=== PATIENT | male | born 1955 | race African-American/Black ===

== ENCOUNTER 2016-10-02 08:25 | Inpatient (IN) | payer MEDICARE, MEDICAID ==
[~2016-10-02] VITALS: Ht 167.6 cm; Wt 61.4 kg
[~2016-10-02 08:25] MED LIST: CALCITONIN,SALMON, 3.7 ML NASAL SPRAY ONENSTRL SCH
[2016-10-02] MEDS ORDERED: ASPI-1159 PO (08:40)
[2016-10-02] MEDS ORDERED: TAMS-11 PO (08:40)
[2016-10-02] MEDS ORDERED: METF500T PO (08:40)
[2016-10-02] MEDS ORDERED: LABE100T PO (08:40)
[2016-10-02] MEDS ORDERED: NIFE30TA83 PO (08:40)
[2016-10-02] MEDS ORDERED: GABA-531 PO (08:40)
[2016-10-02] MEDS ORDERED: FURO40TA5 PO (08:40)
[2016-10-02] MEDS ORDERED: METF10002 PO (08:40)
[2016-10-02 09:08] LABS: BG BASE EXCESS -0.3 mmol/L (-2.0-2.0); BG CARBOXYHEMOGLOBIN 1.1 % (0.5-1.5); BG DEOXYHEMOGLOBIN 3.3 % (0.0-5.0); BG FRACTION INSPIRED OXYGEN 21; BG HCO3 ACT 23.7 mmol/L (22.0-26.0); BG METHEMOGLOBIN 0.8 % (0.0-1.5); BG OXYGEN SATURATION 96.6 % (92.0-98.5); BG OXYHEMOGLOBIN 94.8 % (94.0-97.0); BG PCO2 35.9 mmHg (35.0-45.0); BG PH 7.438 (7.350-7.450); BG SAMPLE SITE RIGHT BRACHIAL; BG TOTAL HEMOGLOBIN 7.8 g/dL (12.0-18.0); BG VENT MODE ROOM AIR
[2016-10-02 09:32] LABS: HEMATOCRIT. 22.8 % (42.0-52.0); MEAN CORPUSCULAR HEMOGLOBIN 18.3 pg (28.0-32.0); MEAN CORPUSCULAR VOLUME 61.1 fL (80.0-94.0); MEAN PLATELET VOLUME 6.9 fl (7.4-10.4); PLATELET 456 x1000/uL (130-400); RED BLOOD CELL COUNT 3.73 mill/uL (4.7-6.1); RED CELL DISTRIBUTION WIDTH 19.7 % (11.6-14.6)
[2016-10-02 09:37] LABS: HEMOGLOBIN. 6.8 g/dL (14.0-18.0)
[2016-10-02 09:43] LABS: INR 1.4; PARTIAL THROMBOPLASTIN TIME 32.2 sec (23.4-31.0); PROTHROMBIN TIME 14.7 sec (9.4-11.6)
[2016-10-02 09:50] LABS: CARBON DIOXIDE 24 mEq/L (21-32); CHLORIDE 105 mEq/L (98-107); CREATINE KINASE 12 IU/L (39-308); CREATINE KINASE MB FRACTION < 0.5 ng/mL (0.5-3.6); ETHANOL BLOOD < 10 mg/dL; TROPONIN I < 0.02 ng/mL (0.00-0.04)
[2016-10-02] MEDS ORDERED: SODIUM CHLORIDE 0.9% 1,000 ML IV ONE (09:52)
[2016-10-02 10:00] LABS: AMMONIA 18 uMol/L (<32)
[2016-10-02] MEDS ORDERED: FUROSEMIDE 20MG/2ML VIAL IVP ONE (10:00)
[2016-10-02 10:04] LABS: TOTAL IRON BINDING CAPACITY 197 ug/dL (250-450)
[2016-10-02 10:26] LABS: PLATELET ESTIMATE INCREASED
[2016-10-02] MEDS ORDERED: HYDROCODONE/ACETAMINOPHEN 5/325MG TABLET PO PRN (12:00)
[2016-10-02] MEDS ORDERED: MAGNESIUM/ALUMINUM HYDROXIDE/SIMETHICONE 30ML UDC PO PRN (12:00)
[2016-10-02] MEDS ORDERED: ACETAMINOPHEN 325MG TABLET PO PRN (12:00)
[2016-10-02] MEDS ORDERED: IPRATROPIUM/ALBUTEROL 0.5-3(2.5)MG/3ML NEB INH PRN (12:00)
[2016-10-02] MEDS ORDERED: CLONIDINE 0.1MG TABLET PO PRN (12:00)
[2016-10-02] MEDS ORDERED: ONDANSETRON HCL 4MG/2ML VIAL IV PRN (12:00)
[2016-10-02 12:17] LABS: CLARITY URINE CLEAR (CLEAR); COLOR URINE YELLOW (YELLOW); GLUCOSE URINE NEGATIVE (NEGATIVE); KETONES URINE NEGATIVE (NEGATIVE); LEUKOCYTE ESTERASE URINE NEGATIVE (NEGATIVE); NITRITE URINE NEGATIVE (NEGATIVE); OCCULT BLOOD URINE 1+ (NEGATIVE); PROTEIN URINE 2+ (NEGATIVE); SPECIFIC GRAVITY URINE 1.012 (1.005-1.030)
[2016-10-02 12:37] LABS: *AMPHETAMINES SCREEN URINE NEGATIVE (NEGATIVE); *BARBITURATES SCREEN URINE NEGATIVE (NEGATIVE); *BENZODIAZEPINES SCREEN URINE NEGATIVE (NEGATIVE); *COCAINE SCREEN URINE NEGATIVE (NEGATIVE); CANNABINOID URINE SCREEN NEGATIVE (NEGATIVE); METHADONE URINE SCREEN NEGATIVE (NEGATIVE); OPIATES URINE SCREEN NEGATIVE (NEGATIVE); PHENCYCLIDINE URINE SCREEN NEGATIVE (NEGATIVE)
[2016-10-02 15:26] LABS: CREATINE KINASE 12 IU/L (39-308); CREATINE KINASE MB FRACTION < 0.5 ng/mL (0.5-3.6); TROPONIN I < 0.02 ng/mL (0.00-0.04)
[2016-10-02] MEDS ORDERED: PAMIDRONATE DISODIUM 90 MG in SODIUM CHLORIDE 0.9% 500 ML IV NR (20:00)
[2016-10-02 22:00] VITALS: BP 140/68
[2016-10-03] VITALS (20 sets, daily range): BP systolic 90–142; BP diastolic 49–69
[2016-10-03] MEDS ORDERED: DEXTROSE 50% WATER 50ML SYRINGE IV PRN
[2016-10-03] MEDS: METOCLOPRAMIDE HCL 10MG/2ML VIAL IV SCH ×5 (01:23→23:50)
[2016-10-03] MEDS: SODIUM CHLORIDE 0.9% 1,000 ML IV SCH ×3 (06:33→21:57)
[2016-10-03] MEDS: INSULIN LISPRO 100 UNITS/ML SUBCUT SCH ×4 (08:00→21:00)
[2016-10-03] MEDS: BLOOD SUGAR DIAGNOSTIC STRIP TEST SCH ×4 (08:09→21:16)
[2016-10-03] MEDS: CALCITONIN,SALMON, 3.7 ML NASAL SPRAY ONENSTRL SCH (08:13)
[2016-10-03 09:40] LABS: HEMOGLOBIN. 8.6 g/dL (14.0-18.0); MEAN CORPUSCULAR HEMOGLOBIN 20.3 pg (28.0-32.0); MEAN CORPUSCULAR VOLUME 65.8 fL (80.0-94.0); PLATELET 403 x1000/uL (130-400); RED BLOOD CELL COUNT 4.26 mill/uL (4.7-6.1); RED CELL DISTRIBUTION WIDTH 24.9 % (11.6-14.6)
[2016-10-03 10:21] LABS: CARBON DIOXIDE 23 mEq/L (21-32); CHLORIDE 107 mEq/L (98-107); HDL CHOLESTEROL 13 mg/dL (40-59); LDL CHOLESTEROL 73 mg/dL (5-100)
[2016-10-03] MEDS ORDERED: MAGNESIUM 2 G PREMIX 50 ML IV SCH (12:00)
[2016-10-03 12:03] LABS: PLATELET ESTIMATE SLIGHTLY INCREASED
[2016-10-04] VITALS (9 sets, daily range): BP systolic 108–149; BP diastolic 50–66
[2016-10-04] MEDS: METOCLOPRAMIDE HCL 10MG/2ML VIAL IV SCH ×2 (05:48→13:33)
[2016-10-04 06:49] LABS: MEAN CORPUSCULAR HEMOGLOBIN 20.4 pg (28.0-32.0); MEAN CORPUSCULAR VOLUME 65.9 fL (80.0-94.0); PLATELET 361 x1000/uL (130-400); RED BLOOD CELL COUNT 3.95 mill/uL (4.7-6.1)
[2016-10-04] MEDS: BLOOD SUGAR DIAGNOSTIC STRIP TEST SCH ×2 (07:30→12:30)
[2016-10-04] MEDS: INSULIN LISPRO 100 UNITS/ML SUBCUT SCH ×2 (07:34→13:32)
[2016-10-04] MEDS: CALCITONIN,SALMON, 3.7 ML NASAL SPRAY ONENSTRL SCH (08:17)
[2016-10-04 08:41] LABS: CARBON DIOXIDE 22 mEq/L (21-32); CHLORIDE 107 mEq/L (98-107)
[2016-10-04] MEDS: SODIUM CHLORIDE 0.9% 1,000 ML IV SCH (15:32)
== END 2016-10-04 15:55 | disposition home or self-care (01) | DRG 682 ==
LOC: ER 08:40 → EDBEDREQ 10:59 → EDBEDREQTM 10:59 → ENRESERV 18:30 → 5EST 21:03 → EDBEDREQTM 21:03 → EDBEDREQSVC 21:03
PROVIDERS: ADMIT Internal Medicine; ATTEND Internal Medicine
PROC: 30233N1 Transfusion of Nonautologous Red Blood Cells into Peripheral Vein, Percutaneous Approach (ICD-10-PCS; principal; 2016-10-03)
DX: N17.9 Acute kidney failure, unspecified (principal); E43 Unspecified severe protein-calorie malnutrition; I50.33 Acute on chronic diastolic (congestive) heart failure; E11.22 Type 2 diabetes mellitus with diabetic chronic kidney disease; E86.0 Dehydration; E83.52 Hypercalcemia; D64.9 Anemia, unspecified; I12.9 Hypertensive chronic kidney disease with stage 1 through stage 4 chronic kidney disease, or unspecified chronic kidney disease; N18.9 Chronic kidney disease, unspecified; Z85.118 Personal history of other malignant neoplasm of bronchus and lung; Z85.528 Personal history of other malignant neoplasm of kidney; Z79.84 Long term (current) use of oral hypoglycemic drugs; Z79.899 Other long term (current) drug therapy; Z79.82 Long term (current) use of aspirin; Z66 Do not resuscitate
CPT/HCPCS: 36415; 36430; 36600; 70450; 71010; 80053; 80061; 80305; 81001; 82140; 82310; 82330; 82375; 82550; 82553; 82805; 82962; 83540; 83550; 83605; 83690; 83735; 83880; 84443; 84484; 85025; 85027; 85044; 85610; 85730; 86850; 86900; 86920; 87040; 87086; 93005; 93306; 93970; 96374; 99291; G0482; J1815; J1940; J2430; J2765; J3475; J7030; J7040; J7050; P9016